=== PATIENT | female | born 1930 | race Caucasian/White ===

== ENCOUNTER → 2016-12-19 | Outpatient (CLI) | payer OTHER | LOC: BHCLAF 14:00 | PROVIDERS: ATTEND Internal Medicine Cardiovascular Disease | DX: I35.0 Nonrheumatic aortic (valve) stenosis (principal) | CPT/HCPCS: 93306-PO ==

== ENCOUNTER → 2017-09-01 | Outpatient (CLI) | payer OTHER | LOC: BHCLAF 13:15 | PROVIDERS: ATTEND Internal Medicine Cardiovascular Disease | DX: I35.0 Nonrheumatic aortic (valve) stenosis (principal); I25.10 Atherosclerotic heart disease of native coronary artery without angina pectoris; I72.9 Aneurysm of unspecified site | CPT/HCPCS: 93306-PO ==